=== PATIENT | female | born 1985 | race Caucasian/White ===

== ENCOUNTER 2020-04-23 23:14 | Emergency (ER) | payer BC, OTHER ==
[~2020-04-23 23:14] MED LIST: FEROSUL325 MG PO; KEFLEX CAP 500500 MG PO; LODINE CAP 300300 MG PO; METFORMIN HCL500 MG PO; ZOFRAN ODT 4 MG4 MG SL
[2020-04-23 23:51] LABS: HEMOGLOBIN 11.4 gm/dl (12.3-15.3); RED BLOOD COUNT 4.93 M/UL (4.00-5.10); WHITE BLOOD COUNT 7.4 K/UL (4.5-11.0)
[2020-04-24 00:25] LABS: BUN/CREATININE RATIO 23 (0-10)
== END 2020-04-24 01:58 | disposition home or self-care (01) ==
LOC: ER1 23:14
PROVIDERS: Physician Assistant
DX: E11.65 Type 2 diabetes mellitus with hyperglycemia (principal); F17.200 Nicotine dependence, unspecified, uncomplicated; Z79.4 Long term (current) use of insulin; Z90.49 Acquired absence of other specified parts of digestive tract
CPT/HCPCS: 36415; 71045; 80053; 82550; 82553; 83874; 84484; 85025; 93005; 99285

== ENCOUNTER 2020-05-16 16:53 | Emergency (ER) | payer OTHER | END 2020-05-16 17:22 | disposition left against medical advice (07) | LOC: ER1 16:53 | DX: Z53.21 Procedure and treatment not carried out due to patient leaving prior to being seen by health care provider (principal) ==

== ENCOUNTER 2020-05-16 22:13 | Emergency (ER) | payer OTHER ==
[2020-05-16 23:57] LABS: HEMOGLOBIN 11.1 gm/dl (12.3-15.3); RED BLOOD COUNT 4.89 M/UL (4.00-5.10); WHITE BLOOD COUNT 9.4 K/UL (4.5-11.0)
[2020-05-17 00:10] LABS: BUN/CREATININE RATIO 28 (0-10)
== END 2020-05-17 02:30 | disposition home or self-care (01) ==
LOC: ER1 22:13
PROVIDERS: Emergency Medicine
DX: R10.31 Right lower quadrant pain (principal); E11.9 Type 2 diabetes mellitus without complications; F17.210 Nicotine dependence, cigarettes, uncomplicated
CPT/HCPCS: 71045; 80053; 81001; 83605; 84703; 85025; 99284; Q9967

== ENCOUNTER 2020-05-27 21:10 | Emergency (ER) | payer OTHER ==
[2020-05-27 22:39] LABS: RED BLOOD COUNT 5.2 M/UL (4.00-5.10); WHITE BLOOD COUNT 9.6 K/UL (4.5-11.0)
[2020-05-27 22:59] LABS: BUN/CREATININE RATIO 28 (0-10)
[2020-05-27] MEDS ORDERED: NAPROXEN500 MG PO (23:56)
== END 2020-05-28 00:54 | disposition home or self-care (01) ==
LOC: ER1 21:10
PROVIDERS: Internal Medicine
DX: E11.65 Type 2 diabetes mellitus with hyperglycemia (principal); R10.84 Generalized abdominal pain; F17.210 Nicotine dependence, cigarettes, uncomplicated; Z90.49 Acquired absence of other specified parts of digestive tract
CPT/HCPCS: 80053; 81001; 83690; 84703; 85025; 96374; 96375; 99284; J2270; J2405; Q9967

== ENCOUNTER 2020-11-03 19:53 | Emergency (ER) | payer OTHER ==
[~2020-11-03 19:53] MED LIST changes: +NAPROXEN500 MG PO
[2020-11-03 22:44] LABS: HEMOGLOBIN 11.7 gm/dl (12.3-15.3); RED BLOOD COUNT 4.9 M/UL (4.00-5.10); WHITE BLOOD COUNT 6.7 K/UL (4.5-11.0)
[2020-11-03 23:10] LABS: BUN/CREATININE RATIO 24 (0-10)
== END 2020-11-04 02:55 | disposition home or self-care (01) ==
LOC: ER1 19:53
PROVIDERS: Physician Assistant
DX: R06.00 Dyspnea, unspecified (principal); E11.9 Type 2 diabetes mellitus without complications; F17.210 Nicotine dependence, cigarettes, uncomplicated; Z20.822 Contact with and (suspected) exposure to COVID-19; Z79.4 Long term (current) use of insulin; Z90.49 Acquired absence of other specified parts of digestive tract
CPT/HCPCS: 71045; 80053; 85025; 99285; U0002

== ENCOUNTER 2021-10-30 19:48 | Emergency (ER) | payer BC, OTHER ==
[2021-10-30 20:39] LABS: HEMOGLOBIN 10.9 gm/dl (12.3-15.3); RED BLOOD COUNT 4.6 M/UL (4.00-5.10); WHITE BLOOD COUNT 4.5 K/UL (4.5-11.0)
[2021-10-30 21:06] LABS: BUN/CREATININE RATIO 17 (0-10)
== END 2021-10-31 01:30 | disposition left against medical advice (07) ==
LOC: ER1 19:48
PROVIDERS: Nurse Practitioner
DX: U07.1 COVID-19 (principal); E11.9 Type 2 diabetes mellitus without complications; F17.210 Nicotine dependence, cigarettes, uncomplicated; Z90.49 Acquired absence of other specified parts of digestive tract
CPT/HCPCS: 71045; 80053; 81001; 82550; 82553; 84484; 85025; 93005; 99283